=== PATIENT | male | born 1980 | race Caucasian/White ===

== ENCOUNTER 2019-04-06 22:48 | Emergency (ER) | payer SELFPAY ==
[2019-04-06] MEDS ORDERED: Lidocaine 1% 10 ML MDV ONE (23:00)
--- NOTE | 2019-04-06 23:02 | EDM.PDOC ---
ED HPI GENERAL MEDICAL PROBLEM - General Chief Complaint: General Stated Complaint: FISH HOOK Time Seen by Provider: 04/06/19 23:00 Source of Information: Reports: Patient - History of Present Illness INITIAL COMMENTS - FREE TEXT/NARRATIVE: 39 yr male presents with fishhook to left hand. States this happened about 2 hours ago. Was fishing for [employer] and staying with friends in [place]. ED ROS GENERAL - Review of Systems Review Of Systems: See Below Constitutional: Reports: No Symptoms Skin: Reports: Other (fish hook in left hand, thumb and 4th finger.) ED EXAM, GENERAL - Physical Exam Exam: See Below Exam Limited By: No Limitations General Appearance: Alert, No Apparent Distress Extremities: Normal Inspection, Normal Range of Motion Neurological: Alert, Oriented, Normal Cognition Skin Exam: Warm, Intact, Other (fish hook in to two fingers.) Course - Re-Assessments/Exams Free Text/Narrative Re-Assessment/Exam: 04/06/19 23:18 Lidocaine 1% used for anesthetize area X 2 areas. Wounds were soaked with [place] and water. [place] removed with use of 18 G needle. Pt is unsure of last tetanus shot. Update tetanus now. Monitor site for signs of infection. Change dressing daily. RTC or PCP if signs of infection noted. Departure - Departure Time of Disposition: 23:22 Disposition: Home, Self-Care 01 Condition: Good Clinical Impression: Fish hook injury of finger of left hand - Discharge Information *PRESCRIPTION DRUG MONITORING PROGRAM REVIEWED*: Not Applicable *COPY OF PRESCRIPTION DRUG MONITORING REPORT IN PATIENT [place]: Not Applicable Instructions: Wound Care, Adult Forms: ED Department Discharge Additional Instructions: Discharge home. Keep wound clean and dry. Monitor for signs symptoms of infection. Follow up as needed with your primary provider. Call or return to the ER if you have any questions or concerns. - Assessment/Plan Plan: Keep area clean, change dressing daily, monitor for signs of infection. RTC or PCP if signs of infection noted.
[2019-04-06] MEDS ORDERED: Diphtheria,Pertussis(Acell),Tetanus Vaccine 0.5 ML SDV inactive IM ONE (23:22)
== END 2019-04-06 23:26 | disposition home or self-care (01) ==
LOC: LB.ED 22:48
DX: S60.352A Superficial foreign body of left thumb, initial encounter (principal); S60.455A Superficial foreign body of left ring finger, initial encounter; Z23 Encounter for immunization; W45.8XXA Other foreign body or object entering through skin, initial encounter
CPT/HCPCS: 90471; 90715; 99282; J2001